=== PATIENT | female | born 1980 | race Two or more races ===

== ENCOUNTER 2023-11-10 22:29 | Emergency (ER) | payer MEDICAID ==
[~2023-11-10] VITALS: Ht 162.6 cm; Wt 68.0 kg
[2023-11-10 22:49] VITALS: BP 133/72; PULSE 88; RESP 18; TEMP 98; O2SAT 99
== END 2023-11-11 03:34 | disposition home or self-care (01) ==
LOC: ER 22:29
DX: R44.3 Hallucinations, unspecified (principal)
CPT/HCPCS: 99283

== ENCOUNTER 2025-01-24 12:40 | Emergency (ER) | payer MEDICAID, OTHER ==
[~2025-01-24] VITALS: Ht 170.2 cm; Wt 81.0 kg
[2025-01-24 12:47] VITALS: O2SAT 100
[2025-01-24 13:10] VITALS: BP 132/84; PULSE 117; RESP 14; TEMP 36.9; O2SAT 96
[2025-01-24 14:14] LABS: CHLORIDE 108 mEq/L (98-107); POTASSIUM 3.7 mEq/L (3.5-5.1); SODIUM 145 mEq/L (136-145)
[2025-01-24 14:15] LABS: BASOPHILS % 0.9 % (0.0-2.0); CALCIUM 9.3 mg/dL (8.7-10.4); CARBON DIOXIDE 20 mEq/L (21-32); DIFFERENTIAL COMMENT 0; EOSINOPHILS % 1.1 % (0.0-5.0); HEMOGLOBIN. 12.5 g/dL (12.0-16.0); LYMPHOCYTES % 37.3 % (20.0-50.0); MEAN CORPUSCULAR HEMOGLOBIN 23.7 pg (28.0-32.0); MEAN CORPUSCULAR HGB CONC 32.8 g/dL (31.0-37.0); MEAN CORPUSCULAR VOLUME 72.2 fL (81.0-99.0); MEAN PLATELET VOLUME 8.2 fl (7.4-10.4); MONOCYTES % 2.8 % (2.0-8.0); NEUTROPHILS % 57.9 % (40.0-76.0); PLATELET 354 x1000/uL (130-400); RED BLOOD CELL COUNT 5.27 mill/uL (4.2-5.4); RED CELL DISTRIBUTION WIDTH 16.2 % (11.6-14.6); WHITE BLOOD COUNT 7.6 x1000/uL (4.5-11.0)
[2025-01-24 14:20] LABS: CREATININE 0.6 mg/dL (0.6-1.0); GLUCOSE 108 mg/dL (70-105); UREA NITROGEN BLOOD 11 mg/dL (9-23)
[2025-01-24 14:22] LABS: ACETAMINOPHEN < 2 ug/mL (10-30)
[2025-01-24 14:30] LABS: ETHANOL BLOOD 336 mg/dL (<10)
[2025-01-24 15:58] LABS: *AMPHETAMINES SCREEN URINE NEGATIVE (NEGATIVE); *BARBITURATES SCREEN URINE NEGATIVE (NEGATIVE); *BENZODIAZEPINES SCREEN URINE NEGATIVE (NEGATIVE); *COCAINE SCREEN URINE NEGATIVE (NEGATIVE); CANNABINOID URINE SCREEN NEGATIVE (NEGATIVE); ECSTASY MDMA SCREEN URINE NEGATIVE (NEGATIVE); METHADONE URINE SCREEN NEGATIVE (NEGATIVE); OPIATES URINE SCREEN NEGATIVE (NEGATIVE); PHENCYCLIDINE URINE SCREEN NEGATIVE (NEGATIVE)
[2025-01-24 16:03] LABS: CLARITY URINE CLEAR (CLEAR); COLOR URINE YELLOW (YELLOW); GLUCOSE URINE NEGATIVE (NEGATIVE); KETONES URINE TRACE (NEGATIVE); LEUKOCYTE ESTERASE URINE NEGATIVE (NEGATIVE); NITRITE URINE NEGATIVE (NEGATIVE); OCCULT BLOOD URINE 1+ (NEGATIVE); PH URINE 5.5 (4.5-8.0); PROTEIN URINE 1+ (NEGATIVE); SPECIFIC GRAVITY URINE 1.015 (1.005-1.030); UROBILINOGEN URINE 0.2 E.U./dL (0.2-1.0)
[2025-01-24 16:30] LABS: BACTERIA URINE TRACE; SQUAMOUS EPITHELIAL CELL URINE FEW /lpf (RARE/1+); WBC URINE 0-2 /hpf (0-2)
== END 2025-01-24 16:10 | disposition left against medical advice (07) ==
LOC: ER 12:40
DX: F10.20 Alcohol dependence, uncomplicated (principal); F31.9 Bipolar disorder, unspecified; F41.9 Anxiety disorder, unspecified; Y90.8 Blood alcohol level of 240 mg/100 ml or more
CPT/HCPCS: 36415; 80048; 80305; 80307; 80320; 80329; 81003; 85025; 99283; G0480